=== PATIENT | male | born 1950 | race Caucasian/White ===

== ENCOUNTER → 2016-12-05 | Outpatient (CLI) | payer MEDICARE ==
[~2016-12-05] MED LIST: ACETAMINOPHEN-H1 TA2 PO; ADVIL200 MG PO; B121000 MCG/1 IM; BACTRIM DS 8001 TA1 PO; BENZTROPINE ME0.5 MG PO; CARB/LEVO; CARB/LEVO PO; CARBIDOPA/LEVODOPA; CARBIDOPA/LEVODOPA PO; CIPROFLOXACIN500 MG PO; CITALOPRAM HYDR20 MG PO; CITALOPRAM10 MG PO; CO Q-1010 M2 PO; CO Q-1075 MG PO; COGENTIN0.5 MG PO; COMTAN200 MG PO; COQ10150 MG PO; DARVOCET N 1001 TAB PO; DOXYCYCLINE HY100 M3 PO; FLUMADINE100 MG PO; HUMULIN R100 U/ML SC; HYDROCODONE BIT1 T11 PO; LANTUS100 U/ML SC; LASIX40 MG PO; LEXAPRO10 MG PO; MEDROL DOSEPAK4 MG PO; NOVOLIN R100 U/ML SC; REMERON SOLTAB15 MG PO; SINEMET 25-1001 TA1 PO; SINEMET 25-1001 TA1 SL; SINEMET CR 50 M1 TE1 PO; SINEMET CR 50/21 TAB PO; TOVIAZ8 MG PO; VITAMIN B11000 MCG/M IM; VITAMIN D400 IU PO; [UNRECOGNIZED DRUG - OTHER] PO; [UNRECOGNIZED DRUG - OTHER] PO
== END | disposition home or self-care (01) ==
LOC: ORTHO 04:05
DX: S72.115D Nondisplaced fracture of greater trochanter of left femur, subsequent encounter for closed fracture with routine healing (principal); M25.552 Pain in left hip

== ENCOUNTER → 2017-01-16 | Outpatient (CLI) | payer MEDICARE ==
[~2017-01-16] MED LIST changes: +NORCO 5-325 TA1 EACH PO
== END | disposition home or self-care (01) ==
LOC: ORTHO 03:11
DX: S72.92XD Unspecified fracture of left femur, subsequent encounter for closed fracture with routine healing (principal); G20 Parkinson's disease; X58.XXXD Exposure to other specified factors, subsequent encounter

== ENCOUNTER 2017-01-19 09:29 | Emergency (ER) | payer MEDICARE ==
[~2017-01-19] VITALS: Wt 48.5 kg
[~2017-01-19 09:29] MED LIST changes: -NORCO 5-325 TA1 EACH PO
[2017-01-19 11:02] VITALS: BP 113/68
[2017-01-19] MEDS ORDERED: NORCO 5-325 TA1 EACH PO (12:05)
== END 2017-01-19 12:08 | disposition home or self-care (01) ==
LOC: ED 09:29
DX: G89.29 Other chronic pain (principal); M25.561 Pain in right knee; Z91.030 Bee allergy status; Z91.041 Radiographic dye allergy status; Z79.899 Other long term (current) drug therapy

== ENCOUNTER 2017-08-04 00:43 | Inpatient (IN) | payer MEDICARE ==
[2017-08-04] VITALS (23 sets, daily range): BP systolic 65–123; BP diastolic 39–68
[~2017-08-04] VITALS: Ht 167.6 cm; Wt 52.6 kg
--- NOTE | ~2017-08-04 | EKG ---
[place], [place] ELECTROCARDIOGRAM REPORT NAME: NETO CHRISTIANSON UNIT #: [id number] ROOM: [facility] DOCTOR: KATIE MORENO,KEYUR BIRTHDATE: [birth year] DOS: 08/04/2017 TIME: 0121 hours. Normal sinus rhythm at 97 beats per minute. Low voltage in limb leads. The tracing is otherwise normal. No previous tracing is available for comparison. KEYUR WILSON MD CM:EKGRPT:ELECTROCARDIOGRAM REPORT [id number] KEYUR WILSON MD
[~2017-08-04 00:43] MED LIST changes: +CARBIDOPA; +LEVODOPA; +NORCO 5-325 TA1 EACH PO; +SINEMET; -SINEMET 25-1001 TA1 SL; -SINEMET CR 50 M1 TE1 PO
[2017-08-04 01:46] LABS: HEMATOCRIT 32.6 % (42.0-52.0); MEAN CELL VOLUME 94.8 fl (80.0-94.0); MEAN CORPUSCULAR HGB CONC 33.7 g/dl (33.0-37.0); MEAN PLATELET VOLUME 10.2 fl (9.6-12.3); PLATELET COUNT AUTOMATED 153 10*3/uL (130-400); RED BLOOD COUNT 3.44 10*6/uL (4.50-5.90); RED CELL DISTRI WIDTH 13.1 % (0-14.5); WHITE BLOOD COUNT 15.7 10*3/uL (4.8-10.8)
--- NOTE | 2017-08-04 01:53 | NUR ---
CRITICAL LACTIC ACID REPORTED FROM LAB. DR. HUYNH NOTIFIED.
[2017-08-04 01:57] LABS: INTERNATIONAL NORM RATIO 1.2 (2.0-3.5)
[2017-08-04 02:03] LABS: ALBUMIN 3.3 gm/dl (3.1-4.5); ALKALINE PHOSPHATASE 55 U/L (45-117); BUN 31 mg/dl (7-24); CHLORIDE 106 mmol/L (98-107); CREATININE 2.25 mg/dL (0.70-1.30); LIPASE 86 U/L (73-393); POTASSIUM 4.1 mmol/L (3.5-5.1); SGOT/AST 44 IU/L (3-35); SGPT/ALT 11 U/L (12-78); SODIUM 139 mmol/L (136-145); TOTAL PROTEIN 7.2 gm/dL (6.4-8.2)
[2017-08-04 02:06] LABS: TROPONIN I < 0.015 ng/ml (<0.045)
--- NOTE | 2017-08-04 02:15 | NUR ---
PT PLACED IN [place] POSITION TO ASSIST BP.
[2017-08-04 02:17] LABS: PLATELET SUFFICIENCY NORMAL (NORMAL); TOTAL CELLS COUNTED 100 #CELLS
--- NOTE | 2017-08-04 02:38 | NUR ---
1L NS BAG PLACED IN PRESSURE BAG.
--- NOTE | 2017-08-04 02:57 | NUR ---
PT STATES TINNITUS IS NOT BAD ANYMORE.
--- NOTE | 2017-08-04 03:12 | NUR ---
2L OF FLUID IN PT. CURRENT BP 76/50. DR. HUYNH NOTIFIED.
[2017-08-04 03:52] LABS: BILIRUBIN 2+ (NEGATIVE); BLOOD 3+ (NEGATIVE); CLARITY SL CLOUDY (CLEAR); COLOR YELLOW (YELLOW); GLUCOSE NEGATIVE (NEGATIVE); KETONE 1+ (NEGATIVE); LEUKO ESTERASE TRACE (NEGATIVE); NITRITE POSITIVE (NEGATIVE); SPECIFIC GRAVITY 1.025 (1.005-1.030)
[2017-08-04 04:01] LABS: URINE AMPHETAMINES < 1000 (1000ng/ml); URINE BARBITURATES < 200 (200ng/ml); URINE BENZODIAZEPINES < 200 (200ng/ml); URINE CANNABINOIDS (THC) < 50 (50ng/ml); URINE COCAINE < 300 (300ng/ml); URINE METHADONE < 300 (300ng/ml); URINE OPIATES < 300 (300ng/ml)
[2017-08-04 04:02] LABS: URINE PHENCYCLIDINE < 25 (25ng/ml)
[2017-08-04 04:07] LABS: BACTERIA 3+
[2017-08-04 04:08] LABS: RBC 41-50 rbc/hpf (0-2)
--- NOTE | 2017-08-04 04:20 | NUR ---
RECEIVED REPORT FROM KILN CLEANER. AWAITING PATIENT.
--- NOTE | 2017-08-04 04:40 | NUR ---
A 67, admitted to ICCU, under the services of ROBSON Adams DO with a diagnosis of SEVERE SEPTIC SHOCK, HYPOTENTION. Chief complaint is ABDOMINAL PAIN. Patient arrived via ambulance from ER. Monitor applied. Initial assessment completed. Vital signs taken and recorded. ROBSON ADAMS DO notified of admission to the unit. Orders received. See assessment for past medical history, medications and allergies. Patient and/or family oriented to unit. [facility] ICCU visitation policy reviewed. Clothing/patient valuable form completed. LOU FAM
--- NOTE | 2017-08-04 04:45 | NUR ---
RECEIVED CALL FROM [facility] WANTING A HISTORY ON PATIENT, DUE TO HIM BEING TRANSFERED UP THERE. WAS UNAWARE OF THE TRANSFER, CALLED DR. SORTO ON OTHER LINE. HE STATED YEA TRANSFER PATIENT. PATIENT WAS LYING ON ER CART NOT EVEN IN ROOM YET. CONTACTED ROSIE, SHE STATED WE HAD TO ADMIT PATIENT THEN TRANSFER. GAVE MIMI BRIEF HISTORY, AND HE WILL CALL BACK WITH BED.
--- NOTE | 2017-08-04 04:45 | NUR ---
A 67 YEAR OLD MALE admitted to ICCU, under the services of ROBSON Adams DO with a diagnosis of SEPSIS RELATED HYPOTENSION,COLITIS,PARKINSONS. Chief complaint is ABD PAIN . Patient arrived via stretcher from ER. Monitor applied. Initial assessment completed. Vital signs taken and recorded. ROBSON ADAMS DO notified of admission to the unit. Orders received. See assessment for past medical history, medications and allergies. Patient and/or family oriented to unit. [facility] ICCU visitation policy reviewed. Clothing/patient valuable form completed. MADELYN WIGGINS
--- NOTE | 2017-08-04 04:50 | NUR ---
[facility] CALLED WITH BED, THEN TRANSFERED TO RN TO GIVE REPORT.
--- NOTE | 2017-08-04 05:00 | NUR ---
REPORT GIVEN TO RN AT [facility].
--- NOTE | 2017-08-04 05:50 | NUR ---
PATIENT LEFT FLOOR VIA [facility], FOR TRANSFER TO [facility] ICU.
== END 2017-08-04 05:50 | disposition short-term general hospital (02) | DRG 871 ==
LOC: ED 00:43 → EDHOLD 03:50 → ICCU 04:11
PROVIDERS: Emergency Medicine Emergency Medical Services; ADMIT Internal Medicine
DX: A41.9 Sepsis, unspecified organism (principal); R65.21 Severe sepsis with septic shock; N17.0 Acute kidney failure with tubular necrosis; G93.41 Metabolic encephalopathy; G20 Parkinson's disease; I95.89 Other hypotension; E83.41 Hypermagnesemia; N39.0 Urinary tract infection, site not specified; N18.3 Chronic kidney disease, stage 3 (moderate); K52.9 Noninfective gastroenteritis and colitis, unspecified; G89.29 Other chronic pain; R31.9 Hematuria, unspecified; K56.41 Fecal impaction; D64.9 Anemia, unspecified; R73.9 Hyperglycemia, unspecified; E80.6 Other disorders of bilirubin metabolism; E53.8 Deficiency of other specified B group vitamins; R29.6 Repeated falls; Z87.81 Personal history of (healed) traumatic fracture; Z82.49 Family history of ischemic heart disease and other diseases of the circulatory system; Z83.3 Family history of diabetes mellitus; Z91.030 Bee allergy status; Z91.041 Radiographic dye allergy status; Z79.899 Other long term (current) drug therapy

== ENCOUNTER → 2017-08-19 | Outpatient (CLI) | payer MEDICARE ==
[2017-08-19 15:41] LABS: BASO % 0.6 % (0.0-1.0); EOS # 0.2 10*3/uL (0.0-0.4); EOS % 2.4 % (1.0-4.0); HEMATOCRIT 34.5 % (42.0-52.0); HEMOGLOBIN 11.1 g/dl (14.0-18.0); LYMPH # 1.1 10*3/uL (1.3-4.4); MEAN CELL VOLUME 96.9 fl (80.0-94.0); MEAN CORPUSCULAR HGB 31.2 pg (27.0-31.0); MEAN CORPUSCULAR HGB CONC 32.2 g/dl (33.0-37.0); MEAN PLATELET VOLUME 10.5 fl (9.6-12.3); MONO # 0.7 10*3/uL (0.1-1.0); MONO % 10.9 % (3.0-9.0); NEUT # 4.3 10*3/uL (2.3-7.9); NEUT % 67.8 % (47.0-73.0); PLATELET COUNT AUTOMATED 343 10*3/uL (130-400); RED BLOOD COUNT 3.56 10*6/uL (4.50-5.90); RED CELL DISTRI WIDTH 12.9 % (0-14.5); WHITE BLOOD COUNT 6.3 10*3/uL (4.8-10.8)
[2017-08-19 15:54] LABS: ALBUMIN 3.7 gm/dl (3.1-4.5); CREATININE 1.62 mg/dL (0.70-1.30); POTASSIUM 4.4 mmol/L (3.5-5.1); TOTAL PROTEIN 8.1 gm/dL (6.4-8.2)
== END | disposition home or self-care (01) ==
LOC: LAB 15:16
PROVIDERS: Family Medicine Adult Medicine
DX: K59.03 Drug induced constipation (principal)

== ENCOUNTER 2017-08-26 12:46 | Emergency (ER) | payer MEDICARE ==
[~2017-08-26] VITALS: Ht 167.6 cm; Wt 54.4 kg
[2017-08-26 13:00] VITALS: BP 106/54
[2017-08-26 13:40] LABS: BASO % 0.3 % (0.0-1.0); EOS # 0.1 10*3/uL (0.0-0.4); EOS % 2.1 % (1.0-4.0); HEMATOCRIT 32.7 % (42.0-52.0); HEMOGLOBIN 10.7 g/dl (14.0-18.0); LYMPH # 1.3 10*3/uL (1.3-4.4); LYMPH % 19.6 % (27.0-41.0); MEAN CELL VOLUME 95.9 fl (80.0-94.0); MEAN CORPUSCULAR HGB 31.4 pg (27.0-31.0); MEAN CORPUSCULAR HGB CONC 32.7 g/dl (33.0-37.0); MEAN PLATELET VOLUME 10.2 fl (9.6-12.3); MONO # 0.7 10*3/uL (0.1-1.0); MONO % 9.7 % (3.0-9.0); NEUT # 4.6 10*3/uL (2.3-7.9); NEUT % 67.7 % (47.0-73.0); PLATELET COUNT AUTOMATED 254 10*3/uL (130-400); RED BLOOD COUNT 3.41 10*6/uL (4.50-5.90); RED CELL DISTRI WIDTH 12.8 % (0-14.5); WHITE BLOOD COUNT 6.8 10*3/uL (4.8-10.8)
[2017-08-26 13:49] LABS: ACT PARTIAL THROMBO TIME 26.7 SECONDS (20.8-31.5); INTERNATIONAL NORM RATIO 1.1 (2.0-3.5)
[2017-08-26 13:55] LABS: ALBUMIN 3.7 gm/dl (3.1-4.5); ALKALINE PHOSPHATASE 60 U/L (45-117); BUN 20 mg/dl (7-24); CHLORIDE 106 mmol/L (98-107); CREATININE 1.54 mg/dL (0.70-1.30); LIPASE 136 U/L (73-393); POTASSIUM 4.3 mmol/L (3.5-5.1); SGOT/AST 10 IU/L (3-35); SGPT/ALT 8 U/L (12-78); SODIUM 141 mmol/L (136-145); TOTAL PROTEIN 7.7 gm/dL (6.4-8.2)
== END 2017-08-26 18:29 | disposition home or self-care (01) ==
LOC: ED 12:46
PROVIDERS: Emergency Medicine
DX: K59.00 Constipation, unspecified (principal); G89.29 Other chronic pain; N18.3 Chronic kidney disease, stage 3 (moderate); R73.9 Hyperglycemia, unspecified; E80.6 Other disorders of bilirubin metabolism; E83.41 Hypermagnesemia; I95.9 Hypotension, unspecified; G20 Parkinson's disease; Z91.030 Bee allergy status; Z91.041 Radiographic dye allergy status; Z79.899 Other long term (current) drug therapy

== ENCOUNTER 2017-10-05 07:43 | Inpatient (IN) | payer MEDICARE ==
[~2017-10-05] VITALS: Ht 170.1 cm; Wt 46.7 kg
[2017-10-05] VITALS (9 sets, daily range): BP systolic 95–156; BP diastolic 57–75
[2017-10-05 09:06] LABS: BASO % 0.2 % (0.0-1.0); EOS % 0.2 % (1.0-4.0); HEMATOCRIT 30.6 % (42.0-52.0); HEMOGLOBIN 10.1 g/dl (14.0-18.0); LYMPH # 0.8 10*3/uL (1.3-4.4); LYMPH % 5.9 % (27.0-41.0); MEAN CORPUSCULAR HGB 30.7 pg (27.0-31.0); MONO % 7.5 % (3.0-9.0); NEUT # 10.9 10*3/uL (2.3-7.9); NEUT % 85.9 % (47.0-73.0); PLATELET COUNT AUTOMATED 301 10*3/uL (130-400); RED BLOOD COUNT 3.29 10*6/uL (4.50-5.90); RED CELL DISTRI WIDTH 12.6 % (0-14.5); WHITE BLOOD COUNT 12.7 10*3/uL (4.8-10.8)
[2017-10-05 09:20] LABS: ALBUMIN 3.2 gm/dl (3.1-4.5); CREATININE 1.5 mg/dL (0.70-1.30); POTASSIUM 4.2 mmol/L (3.5-5.1); TOTAL PROTEIN 7.5 gm/dL (6.4-8.2)
[2017-10-05 11:41] LABS: BILIRUBIN NEGATIVE (NEGATIVE); BLOOD NEGATIVE (NEGATIVE); CLARITY SL CLOUDY (CLEAR); COLOR YELLOW (YELLOW); GLUCOSE NEGATIVE (NEGATIVE); KETONE NEGATIVE (NEGATIVE); LEUKO ESTERASE NEGATIVE (NEGATIVE); NITRITE NEGATIVE (NEGATIVE); SPECIFIC GRAVITY 1.015 (1.005-1.030); UROBILINOGEN 0.2 E.U./dl (0.2-1.0)
[2017-10-05 11:53] LABS: HYALINE CAST 0-2; MUCOUS TRACE; RBC 0-2 rbc/hpf (0-2)
[2017-10-05] MEDS ORDERED: MELATONIN1 MG PO (14:26)
[2017-10-05] MEDS ORDERED: SINEMET 25-1001 EACH PO (17:05)
[2017-10-05] MEDS ORDERED: SINEMET CR 50-1 EACH PO (17:06)
[2017-10-06] VITALS: BP 106/70
[2017-10-06 07:51] LABS: BASO % 0.2 % (0.0-1.0); EOS % 0.2 % (1.0-4.0); HEMATOCRIT 27.6 % (42.0-52.0); LYMPH % 7.9 % (27.0-41.0); MEAN CELL VOLUME 94.5 fl (80.0-94.0); MEAN CORPUSCULAR HGB 30.8 pg (27.0-31.0); MEAN CORPUSCULAR HGB CONC 32.6 g/dl (33.0-37.0); MEAN PLATELET VOLUME 10.3 fl (9.6-12.3); MONO % 8.3 % (3.0-9.0); NEUT # 10.3 10*3/uL (2.3-7.9); PLATELET COUNT AUTOMATED 223 10*3/uL (130-400); RED BLOOD COUNT 2.92 10*6/uL (4.50-5.90); RED CELL DISTRI WIDTH 12.8 % (0-14.5); WHITE BLOOD COUNT 12.4 10*3/uL (4.8-10.8)
[2017-10-06 08:00] VITALS: BP 118/68
[2017-10-06 08:23] LABS: ALBUMIN 2.8 gm/dl (3.1-4.5); ALKALINE PHOSPHATASE 60 U/L (45-117); BUN 15 mg/dl (7-24); CHLORIDE 109 mmol/L (98-107); CHOLESTEROL 90 mg/dL (<200); CREATININE 1.24 mg/dL (0.70-1.30); FREE T4 1.07 ng/dl (0.76-1.46); HDL CHOLESTEROL 53 mg/dl (40-60); LDL CHOLESTEROL 26 mg/dL (9-159); PHOSPHOROUS 2.1 mg/dL (2.5-4.9); SGOT/AST 8 IU/L (3-35); SGPT/ALT 7 U/L (12-78); SODIUM 140 mmol/L (136-145); TOTAL PROTEIN 6.8 gm/dL (6.4-8.2); TRIGLYCERIDES 55 mg/dl (<150); VLDL CHOLESTEROL 11 mg/dL (6-40)
[2017-10-06 12:00] VITALS: BP 127/71
[2017-10-06] MEDS ORDERED: SINEMET 25-1001 EACH PO (12:32)
[2017-10-06 16:00] VITALS: BP 127/72
[2017-10-06 20:00] VITALS: BP 92/70
[2017-10-07] VITALS: BP 104/66
[2017-10-07 08:00] VITALS: BP 108/60
[2017-10-07 12:00] VITALS: BP 100/58
[2017-10-07 16:00] VITALS: BP 102/60
[2017-10-07 20:00] VITALS: BP 111/65
[2017-10-08] VITALS: BP 105/65
[2017-10-08 08:00] VITALS: BP 152/78
[2017-10-08] MEDS ORDERED: VITAMIN D5000 UNI1 PO (10:11)
== END 2017-10-08 13:20 | disposition other institution (70) | DRG 552 ==
LOC: ED 07:43 → 5E 12:06 → EDHOLD 12:06 → 5E 12:11
PROVIDERS: Registered Nurse; Student in an Organized Health Care Education/Training Program
DX: M54.5 Low back pain (principal); L89.301 Pressure ulcer of unspecified buttock, stage 1; E44.0 Moderate protein-calorie malnutrition; G20 Parkinson's disease; N18.3 Chronic kidney disease, stage 3 (moderate); Z68.1 Body mass index [BMI] 19.9 or less, adult; E86.0 Dehydration; E83.39 Other disorders of phosphorus metabolism; D53.9 Nutritional anemia, unspecified; K59.00 Constipation, unspecified; R26.2 Difficulty in walking, not elsewhere classified; R62.7 Adult failure to thrive; G89.29 Other chronic pain; M25.569 Pain in unspecified knee; D72.829 Elevated white blood cell count, unspecified; Z91.030 Bee allergy status; Z91.041 Radiographic dye allergy status; Z79.899 Other long term (current) drug therapy; Z82.49 Family history of ischemic heart disease and other diseases of the circulatory system; Z83.3 Family history of diabetes mellitus

== ENCOUNTER 2018-01-19 02:27 | Inpatient (IN) | payer MEDICARE ==
[~2018-01-19] VITALS: Ht 170.1 cm; Wt 77.1 kg
[2018-01-19] VITALS (9 sets, daily range): BP systolic 97–136; BP diastolic 47–83
[~2018-01-19 02:27] MED LIST changes: +MELATONIN1 MG PO; +SINEMET 25-1001 EACH PO; +SINEMET CR 50-1 EACH PO; +VITAMIN D5000 UNI1 PO
[2018-01-19 03:13] LABS: BASO % 0.2 % (0.0-1.0); EOS # 0.2 10*3/uL (0.0-0.4); EOS % 2.9 % (1.0-4.0); HEMATOCRIT 30.9 % (42.0-52.0); HEMOGLOBIN 10.1 g/dl (14.0-18.0); LYMPH # 1.3 10*3/uL (1.3-4.4); LYMPH % 21.5 % (27.0-41.0); MEAN CELL VOLUME 93.9 fl (80.0-94.0); MEAN CORPUSCULAR HGB 30.7 pg (27.0-31.0); MEAN CORPUSCULAR HGB CONC 32.7 g/dl (33.0-37.0); MEAN PLATELET VOLUME 10.1 fl (9.6-12.3); MONO # 0.6 10*3/uL (0.1-1.0); NEUT # 3.7 10*3/uL (2.3-7.9); NEUT % 63.9 % (47.0-73.0); PLATELET COUNT AUTOMATED 235 10*3/uL (130-400); RED BLOOD COUNT 3.29 10*6/uL (4.50-5.90); RED CELL DISTRI WIDTH 12.9 % (0-14.5); WHITE BLOOD COUNT 5.8 10*3/uL (4.8-10.8)
[2018-01-19 03:23] LABS: ACT PARTIAL THROMBO TIME 27.9 SECONDS (20.8-31.5); INTERNATIONAL NORM RATIO 1.1 (2.0-3.5)
[2018-01-19 03:29] LABS: ALBUMIN 3.1 gm/dl (3.1-4.5); ALKALINE PHOSPHATASE 54 U/L (45-117); BUN 24 mg/dl (7-24); CHLORIDE 109 mmol/L (98-107); CREATININE 1.52 mg/dL (0.70-1.30); POTASSIUM 3.9 mmol/L (3.5-5.1); SGOT/AST 6 IU/L (3-35); SODIUM 141 mmol/L (136-145); TOTAL PROTEIN 6.7 gm/dL (6.4-8.2)
[2018-01-19 03:30] LABS: SGPT/ALT < 6 U/L (12-78); TROPONIN I < 0.015 ng/ml (<0.045)
[2018-01-19 03:31] LABS: BILIRUBIN NEGATIVE (NEGATIVE); BLOOD 2+ (NEGATIVE); CLARITY CLEAR (CLEAR); COLOR YELLOW (YELLOW); GLUCOSE NEGATIVE (NEGATIVE); KETONE NEGATIVE (NEGATIVE); LEUKO ESTERASE NEGATIVE (NEGATIVE); NITRITE NEGATIVE (NEGATIVE); PH 6.5 (5.0-9.0); SPECIFIC GRAVITY 1.025 (1.005-1.030); UROBILINOGEN 0.2 E.U./dl (0.2-1.0)
[2018-01-19 03:39] LABS: RBC 21-30 rbc/hpf (0-2)
[2018-01-19] MEDS ORDERED: CARBIDOPA-LEVO1 EAC2 PO (05:58)
[2018-01-19] MEDS ORDERED: DONEPEZIL HYDROC5 M1 PO (05:59)
[2018-01-20] VITALS: BP 133/76
[2018-01-20 06:43] LABS: BASO % 0.5 % (0.0-1.0); EOS # 0.1 10*3/uL (0.0-0.4); EOS % 2.2 % (1.0-4.0); HEMATOCRIT 31.9 % (42.0-52.0); HEMOGLOBIN 10.3 g/dl (14.0-18.0); LYMPH # 1.2 10*3/uL (1.3-4.4); LYMPH % 22.4 % (27.0-41.0); MEAN CELL VOLUME 94.4 fl (80.0-94.0); MEAN CORPUSCULAR HGB 30.5 pg (27.0-31.0); MEAN CORPUSCULAR HGB CONC 32.3 g/dl (33.0-37.0); MEAN PLATELET VOLUME 10.2 fl (9.6-12.3); MONO # 0.5 10*3/uL (0.1-1.0); MONO % 8.9 % (3.0-9.0); NEUT # 3.6 10*3/uL (2.3-7.9); NEUT % 65.5 % (47.0-73.0); PLATELET COUNT AUTOMATED 200 10*3/uL (130-400); RED BLOOD COUNT 3.38 10*6/uL (4.50-5.90); RED CELL DISTRI WIDTH 12.9 % (0-14.5); WHITE BLOOD COUNT 5.5 10*3/uL (4.8-10.8)
[2018-01-20 07:15] LABS: CHLORIDE 108 mmol/L (98-107); CHOLESTEROL 113 mg/dL (<200); CREATININE 1.24 mg/dL (0.70-1.30); PHOSPHOROUS 2.5 mg/dL (2.5-4.9); POTASSIUM 4.2 mmol/L (3.5-5.1); SODIUM 140 mmol/L (136-145); TRIGLYCERIDES 77 mg/dl (<150); VLDL CHOLESTEROL 15 mg/dL (6-40)
[2018-01-20 07:16] LABS: HDL CHOLESTEROL 45 mg/dl (40-60); LDL CHOLESTEROL 53 mg/dL (9-159)
[2018-01-20 07:18] LABS: BUN 13 mg/dl (7-24)
[2018-01-20 07:38] LABS: VITAMIN D, 25-HYDROXY 32.9 ng/mL (30-100)
[2018-01-20 08:00] VITALS: BP 151/79
[2018-01-20 10:26] LABS: IRON 77 ug/dL (65-175); TOTAL IRON BINDING CAPACITY 275 ug/dl (250-450)
[2018-01-20 12:00] VITALS: BP 133/89
[2018-01-20 13:36] LABS: BILIRUBIN NEGATIVE (NEGATIVE); BLOOD NEGATIVE (NEGATIVE); CLARITY SL CLOUDY (CLEAR); COLOR YELLOW (YELLOW); GLUCOSE NEGATIVE (NEGATIVE); KETONE NEGATIVE (NEGATIVE); LEUKO ESTERASE NEGATIVE (NEGATIVE); NITRITE NEGATIVE (NEGATIVE); SPECIFIC GRAVITY <= 1.005 (1.005-1.030); UROBILINOGEN 0.2 E.U./dl (0.2-1.0)
[2018-01-20 13:47] LABS: BACTERIA 1+; MUCOUS 1+; WBC 0-2 wbc/hpf (0-5)
== END 2018-01-20 16:50 | disposition home or self-care (01) | DRG 640 ==
LOC: ED 02:27 → 5E 04:54 → EDHOLD 04:54 → 5E 05:03
PROVIDERS: Emergency Medicine Emergency Medical Services; Internal Medicine; Internal Medicine Nephrology
DX: E86.0 Dehydration (principal); N17.0 Acute kidney failure with tubular necrosis; E44.0 Moderate protein-calorie malnutrition; E87.8 Other disorders of electrolyte and fluid balance, not elsewhere classified; G20 Parkinson's disease; N18.3 Chronic kidney disease, stage 3 (moderate); R26.2 Difficulty in walking, not elsewhere classified; R47.1 Dysarthria and anarthria; E53.8 Deficiency of other specified B group vitamins; D72.810 Lymphocytopenia; D64.9 Anemia, unspecified; G89.29 Other chronic pain; M25.569 Pain in unspecified knee; E55.9 Vitamin D deficiency, unspecified; Z91.81 History of falling; Z83.3 Family history of diabetes mellitus; Z82.49 Family history of ischemic heart disease and other diseases of the circulatory system; Z84.89 Family history of other specified conditions; Z91.030 Bee allergy status; Z91.041 Radiographic dye allergy status; Z79.899 Other long term (current) drug therapy; Z87.440 Personal history of urinary (tract) infections; Z68.26 Body mass index [BMI] 26.0-26.9, adult

== ENCOUNTER → 2018-08-10 | Outpatient (CLI) | payer MEDICARE ==
[~2018-08-10] MED LIST changes: +CARBIDOPA-LEVO1 EAC2 PO; +DONEPEZIL HYDROC5 M1 PO
--- NOTE | ~2018-08-10 | EKG ---
[place], [place] ELECTROCARDIOGRAM REPORT NAME: NETO CHRISTIANSON UNIT #: [id number] ROOM: DOCTOR: RONA DRAFT REPORT BIRTHDATE: [birth year] [facility] Test Date: 2018-08-10 Test Time: 15:35:11 Pat Name: NETO CHRISTIANSON Department: Room: [facility] 08-19 Gender: M Orderly: 0012 : 1950 Requested By: FELY CANALES Order Number: [id number] Reading MD: Tommy Colbert MD Measurements Intervals [place] Rate: 79 P: 76 UT: 164 QRS: 59 QRSD: 85 T: 13 QT: 366 QTc: 420 Interpretive Statements Sinus rhythm Low voltage, extremity leads Artifact in lead(s) I,II,III,aVR,aVL,aVF,V1,V2,V3,V6 Electronically Signed On 08-12-2018 6:31:19 PST by Tommy Colbert MD CM:EKGRPT:ELECTROCARDIOGRAM REPORT [id number] FELY REA DRAFT REPORT FELY CANALES
[2018-08-10 15:19] LABS: BASO % 0.4 % (0.0-1.0); EOS # 0.1 10*3/uL (0.0-0.4); EOS % 1.3 % (1.0-4.0); HEMATOCRIT 36.5 % (42.0-52.0); HEMOGLOBIN 12.3 g/dl (14.0-18.0); LYMPH # 1.1 10*3/uL (1.3-4.4); LYMPH % 20.6 % (27.0-41.0); MEAN CELL VOLUME 93.4 fl (80.0-94.0); MEAN CORPUSCULAR HGB 31.5 pg (27.0-31.0); MEAN CORPUSCULAR HGB CONC 33.7 g/dl (33.0-37.0); MEAN PLATELET VOLUME 10.8 fl (9.6-12.3); MONO # 0.5 10*3/uL (0.1-1.0); MONO % 8.3 % (3.0-9.0); NEUT # 3.8 10*3/uL (2.3-7.9); NEUT % 69.2 % (47.0-73.0); PLATELET COUNT AUTOMATED 217 10*3/uL (130-400); RED BLOOD COUNT 3.91 10*6/uL (4.50-5.90); RED CELL DISTRI WIDTH 12.7 % (0-14.5); WHITE BLOOD COUNT 5.5 10*3/uL (4.8-10.8)
[2018-08-10 15:49] LABS: ACT PARTIAL THROMBO TIME 26.7 SECONDS (20.8-31.5); INTERNATIONAL NORM RATIO 1.1 (2.0-3.5); POTASSIUM 4.1 mmol/L (3.5-5.1)
[2018-08-10 15:54] LABS: CREATININE 1.63 mg/dL (0.70-1.30)
== END | disposition home or self-care (01) ==
LOC: LAB 14:48
PROVIDERS: Neurological Surgery
DX: Z01.818 Encounter for other preprocedural examination (principal); G20 Parkinson's disease; Z86.2 Personal history of diseases of the blood and blood-forming organs and certain disorders involving the immune mechanism

== ENCOUNTER 2019-03-22 06:26 | Emergency (ER) | payer MEDICARE ==
[~2019-03-22] VITALS: Ht 170.1 cm; Wt 49.9 kg
[2019-03-22 07:25] LABS: BASO % 0.2 % (0.0-1.0); EOS % 0.3 % (1.0-4.0); HEMATOCRIT 36.2 % (42.0-52.0); HEMOGLOBIN 11.7 g/dl (14.0-18.0); LYMPH # 0.5 10*3/uL (1.3-4.4); LYMPH % 8.9 % (27.0-41.0); MEAN CELL VOLUME 97.3 fl (80.0-94.0); MEAN CORPUSCULAR HGB 31.5 pg (27.0-31.0); MEAN CORPUSCULAR HGB CONC 32.3 g/dl (33.0-37.0); MEAN PLATELET VOLUME 10.7 fl (9.6-12.3); MONO # 0.5 10*3/uL (0.1-1.0); MONO % 8.9 % (3.0-9.0); NEUT % 81.4 % (47.0-73.0); PLATELET COUNT AUTOMATED 200 10*3/uL (130-400); RED BLOOD COUNT 3.72 10*6/uL (4.50-5.90); RED CELL DISTRI WIDTH 12.9 % (0-14.5); WHITE BLOOD COUNT 6.1 10*3/uL (4.8-10.8)
[2019-03-22 07:39] LABS: ALBUMIN 3.4 gm/dl (3.1-4.5); ALKALINE PHOSPHATASE 91 U/L (45-117); BUN 25 mg/dl (7-24); CHLORIDE 108 mmol/L (98-107); CREATININE 1.36 mg/dL (0.70-1.30); LIPASE 102 U/L (73-393); POTASSIUM 4.2 mmol/L (3.5-5.1); SGOT/AST 6 IU/L (3-35); SGPT/ALT 10 U/L (12-78); SODIUM 140 mmol/L (136-145); TOTAL PROTEIN 7.5 gm/dL (6.4-8.2)
[2019-03-22 07:40] LABS: TROPONIN I < 0.015 ng/ml (<0.045)
[2019-03-22 08:05] VITALS: BP 114/64
[2019-03-22 08:51] LABS: BILIRUBIN NEGATIVE (NEGATIVE); BLOOD NEGATIVE (NEGATIVE); CLARITY SL CLOUDY (CLEAR); COLOR YELLOW (YELLOW); GLUCOSE NEGATIVE (NEGATIVE); KETONE NEGATIVE (NEGATIVE); LEUKO ESTERASE 1+ (NEGATIVE); NITRITE NEGATIVE (NEGATIVE)
[2019-03-22 09:07] LABS: BACTERIA 2+; EPITHELIAL CELLS 0-2; WBC TNTC wbc/hpf (0-5)
[2019-03-22] MEDS ORDERED: MACROBID100 M1 PO (09:33)
[2019-03-22] MEDS ORDERED: MIRALAX POWDER17 G1 PO (09:34)
== END 2019-03-22 10:16 | disposition home or self-care (01) ==
LOC: ED 06:26
PROVIDERS: Emergency Medicine Emergency Medical Services
DX: N39.0 Urinary tract infection, site not specified (principal); K59.00 Constipation, unspecified; G20 Parkinson's disease; G89.29 Other chronic pain; N18.3 Chronic kidney disease, stage 3 (moderate); Z98.890 Other specified postprocedural states; Z91.030 Bee allergy status; Z91.041 Radiographic dye allergy status

== ENCOUNTER 2020-05-12 15:54 | Emergency (ER) | payer MEDICARE ==
[~2020-05-12] VITALS: Wt 50.8 kg
[2020-05-12 15:54] VITALS: BP 95/57
[~2020-05-12 15:54] MED LIST changes: +MACROBID100 M1 PO; +MIRALAX POWDER17 G1 PO
== END 2020-05-12 18:20 | disposition home or self-care (01) ==
LOC: ED 15:54
DX: S01.112A Laceration without foreign body of left eyelid and periocular area, initial encounter (principal); S61.411A Laceration without foreign body of right hand, initial encounter; Z91.030 Bee allergy status; Z79.899 Other long term (current) drug therapy; X58.XXXA Exposure to other specified factors, initial encounter; Y93.89 Activity, other specified; Y92.89 Other specified places as the place of occurrence of the external cause; Y99.8 Other external cause status

== ENCOUNTER 2020-06-11 17:09 | Observation (INO) | payer MEDICARE ==
[~2020-06-11] VITALS: Ht 167.6 cm; Wt 48.4 kg
[2020-06-11 17:37] VITALS: BP 130/74
[2020-06-11 18:02] LABS: BASO % 0.3 % (0.0-1.0); EOS # 0.1 10*3/uL (0.0-0.4); HEMATOCRIT 34.1 % (42.0-52.0); LYMPH # 0.8 10*3/uL (1.3-4.4); LYMPH % 9.6 % (27.0-41.0); MEAN CELL VOLUME 98.8 fl (80.0-94.0); MEAN CORPUSCULAR HGB CONC 31.4 g/dl (33.0-37.0); MEAN PLATELET VOLUME 9.8 fl (9.6-12.3); MONO # 0.6 10*3/uL (0.1-1.0); MONO % 7.8 % (3.0-9.0); NEUT # 6.4 10*3/uL (2.3-7.9); NEUT % 80.9 % (47.0-73.0); PLATELET COUNT AUTOMATED 255 10*3/uL (130-400); RED BLOOD COUNT 3.45 10*6/uL (4.50-5.90); RED CELL DISTRI WIDTH 14.5 % (0-14.5); WHITE BLOOD COUNT 7.9 10*3/uL (4.8-10.8)
[2020-06-11 18:15] LABS: ACT PARTIAL THROMBO TIME 26.8 SECONDS (20.0-32.1)
[2020-06-11 18:19] LABS: ALBUMIN 3.3 gm/dl (3.1-4.5); ALKALINE PHOSPHATASE 109 U/L (45-117); BUN 22 mg/dl (7-24); CHLORIDE 109 mmol/L (98-107); CREATININE 1.58 mg/dL (0.70-1.30); POTASSIUM 4.4 mmol/L (3.5-5.1); SGOT/AST 6 IU/L (3-35); SGPT/ALT 7 U/L (12-78); SODIUM 138 mmol/L (136-145); TOTAL PROTEIN 7.4 gm/dL (6.4-8.2)
[2020-06-11 18:21] LABS: LIPASE 81 U/L (73-393); TROPONIN I < 0.015 ng/ml (<0.045)
--- NOTE | 2020-06-11 18:30 | NUR ---
PATIENT IS RESTING AT THIS TIME. CALL LIGHT IN REACH.
[2020-06-11 18:53] VITALS: BP 124/80
[2020-06-11 21:10] VITALS: BP 145/85
--- NOTE | 2020-06-11 21:10 | NUR ---
A 69 YEAR OLD MALE PATIENT , admitted to 4E, under the services of RAFAELA Castro DO with a diagnosis of CHEST PAIN R/O [place]. Chief complaint is CHEST PAIN UNDER LEFT AXILLARY AREA, STARTED TODAY, PER PATIETNS HE HAS BEEN HITTING THIS AREA OFF ARM OF WHEELCHAIR. Patient arrived via CART WITH RN from ER. Monitor applied. Initial assessment completed. Vital signs taken and recorded. See assessment for past medical history, medications and allergies. Patient and/or family oriented to unit. [facility] 416-2 visitation policy reviewed. Clothing/patient valuable form completed. LAKEISHA DAS
[2020-06-11] MEDS ORDERED: MELATONIN1 MG PO (22:08)
[2020-06-11] MEDS ORDERED: SERTRALINE HYDR50 MG PO (22:09)
--- NOTE | 2020-06-11 22:10 | NUR ---
MEDICATION RECONCILLIATION COMPLETED WITH PATIENTS OVER THE PHONE, STATES THEY DO NOT SEE A PSYCHIATRIC LPN AND HAVE NO PREFERENCE TO WHO THEY WOULD SEE
[2020-06-11] MEDS ORDERED: COLACE100 MG PO (22:12)
[2020-06-11] MEDS ORDERED: [UNRECOGNIZED DRUG - OTHER] T (22:13)
--- NOTE | 2020-06-11 22:34 | NUR ---
DR ESCOBAR AWARE THAT MED REC IS UP TO DATE
--- NOTE | 2020-06-11 22:41 | NUR ---
PILL BOX THAT PATIENT HAD FROM HOME SENT TO PHARMACY AT THIS TIME
--- NOTE | 2020-06-11 23:18 | NUR ---
PER PATIENTS , PATIENT HAS NOT HAD A BOWEL MOVEMENT IN 11 DAYS. PER REPORT FROM ER PATIENT ARRIVED TO THEM WITH BM IN HIS BRIEF AND WHEN PATIENT ARRIVED TO THE 4TH FLOOR PATIENT HAD SMEARS OF BM ON BRIEF. WILL PASS ALONG TO
[2020-06-12] VITALS: BP 146/90
--- NOTE | 2020-06-12 | NUR ---
ADMISSION WOUND PHOTOS TAKEN AT THIS TIME. PATIENT TOLERATED WELL, OPTIFOAM SACRUM WAS APPLIED TO COCCYX PROTECTIVE MEASURE RN AWAITS DR ORDER FOR WOUND CARE. OPTIFOAM AND VERSATIL APPLIED TO WOUND ON SPONE PROTECTIVE MEASURE WELL. PATIENT DENIES PAIN TO THESE SITES.
[2020-06-12 06:32] LABS: BASO % 0.5 % (0.0-1.0); EOS # 0.1 10*3/uL (0.0-0.4); HEMATOCRIT 33.9 % (42.0-52.0); LYMPH # 1.2 10*3/uL (1.3-4.4); LYMPH % 19.1 % (27.0-41.0); MEAN CORPUSCULAR HGB 30.9 pg (27.0-31.0); MEAN CORPUSCULAR HGB CONC 31.6 g/dl (33.0-37.0); MEAN PLATELET VOLUME 9.9 fl (9.6-12.3); MONO # 0.6 10*3/uL (0.1-1.0); MONO % 9.4 % (3.0-9.0); NEUT # 4.4 10*3/uL (2.3-7.9); NEUT % 68.5 % (47.0-73.0); PLATELET COUNT AUTOMATED 261 10*3/uL (130-400); RED BLOOD COUNT 3.46 10*6/uL (4.50-5.90); RED CELL DISTRI WIDTH 14.5 % (0-14.5); WHITE BLOOD COUNT 6.4 10*3/uL (4.8-10.8)
[2020-06-12 07:05] LABS: ALBUMIN 3.3 gm/dl (3.1-4.5); ALKALINE PHOSPHATASE 105 U/L (45-117); BUN 19 mg/dl (7-24); CHLORIDE 109 mmol/L (98-107); CHOLESTEROL 152 mg/dL (<200); CREATININE 1.41 mg/dL (0.70-1.30); POTASSIUM 4.3 mmol/L (3.5-5.1); SGOT/AST 9 IU/L (3-35); SGPT/ALT 8 U/L (12-78); SODIUM 139 mmol/L (136-145); TOTAL PROTEIN 7.4 gm/dL (6.4-8.2); TRIGLYCERIDES 120 mg/dl (<150); VLDL CHOLESTEROL 24 mg/dL (6-40)
[2020-06-12 07:10] LABS: HDL CHOLESTEROL 61 mg/dl (40-60); LDL CHOLESTEROL 67 mg/dL (9-159)
[2020-06-12 08:26] LABS: VITAMIN D, 25-HYDROXY 16.6 ng/mL (30-100)
--- NOTE | 2020-06-12 09:00 | NUR ---
case management visits with patient, patient unable to carry on a conversation, will contact patient's regarding discharge plans
--- NOTE | 2020-06-12 11:48 | NUR ---
case management attempted to contact patient's regarding discharge plans, unable to leave a voicemail due to mailbox being full. case management will attempt at a later time
[2020-06-12 12:00] VITALS: BP 115/80
[2020-06-12 16:00] VITALS: BP 122/70
[2020-06-12 20:00] VITALS: BP 105/67
[2020-06-13] VITALS: BP 117/61
[2020-06-13 08:00] VITALS: BP 133/83
--- NOTE | 2020-06-13 08:34 | NUR ---
Called patients to discuss discharge planning. She stated [facility] services through [facility]. He has [facility] 4 days a week 2 hours per day and always [facility] 1 day a week for 4 hours. [facility] has a nurse call into the home once a month to check on any additional needs.
--- NOTE | 2020-06-13 11:03 | NUR ---
Spoke with again, stated patient is scheduled for a stress test today and if that is ok he will be discharged to home. she stated she can't transport him home, she uses [employer]. I told her I would call when patient is discharged and set up so she knows what time to expect him.
[2020-06-13 12:00] VITALS: BP 103/62
--- NOTE | 2020-06-13 12:30 | NUR ---
Patient not available for Occupational Therapy evaluation as he was out of his room for a stress test and expected to be gone for 2 hrs per nursing. PLOF patient is w/c dependent and ADL dependent with non-skilled aides 5 days/wk in the home. OT will recheck at a later date. Aziza Hunter OTR/l
--- NOTE | 2020-06-13 12:40 | NUR ---
PATIENT TO [facility] FOR STRESS TEST.
--- NOTE | 2020-06-13 13:20 | NUR ---
INFORMED CONSENT SIGNED FOR LEXISCAN STRESS TEST WITH DR. LOVE. RESTING EKG RBBB, HR 89, BP 128/78. PULSE OX 98% AND LUNGS CLEAR BILATERALLY. COMPLETED ONE MINUTE OF LEXISCAN PROTOCOL RECEIVING LEXISCAN 0.4MG OVER 10 SECONDS. NO ARRHYTHMIAS NOTED. NONDIAGNOSTIC ST CHANGES PRESENT. ARTIFACT NOTED D/T PT HAVING DEEP BRAIN STIMULATOR AND UNABLE TO TURN OFF. PT HAD NO C/O. LAST RECOVERY HR 117, BP 104/70. WAITING NUCLEAR SCANNING IN STABLE CONDITION.
--- NOTE | 2020-06-13 13:50 | NUR ---
PHYSICAL THERAPY Attempted to see pt for evaluation, unvailable out of room for stress test will follow at a later date. Leticia Henriquez PT
--- NOTE | 2020-06-13 14:31 | NUR ---
PATIENT RETURNED FROM STRESS TEST; RESUMING MEDS AND DIET, SEE SHIFT ASSESSMENT FOR DETAILS.
--- NOTE | 2020-06-13 15:30 | NUR ---
PRN PO TYLENOL EFFECTIVE, PER PATIENT.
[2020-06-13 16:00] VITALS: BP 106/85
--- NOTE | 2020-06-13 18:37 | NUR ---
PATIENT REFUSING DISCHARGE WOUND PHOTOS DUE TO PAIN WITH MOVEMENT.
--- NOTE | 2020-06-13 19:00 | NUR ---
PREPARING PATIENT FOR DISCHARGE HOME BY [facility]. IS AWARE THAT AMBULANCE IS EN ROUTE TO THE HOSPITAL, AND PATIENT WILL ARRIVE HOME SOON.
--- NOTE | 2020-06-13 19:06 | NUR ---
PATIENT DISCHARGED HOME BY [facility] AT THIS TIME, DISCHARGE INSTRUCTIONS IN CARE OF EMT'S.
== END 2020-06-13 19:07 | disposition home or self-care (01) ==
LOC: ED 17:09 → EDHOLD 19:06 → 4E 19:06
PROVIDERS: Emergency Medicine; Internal Medicine; ADMIT Internal Medicine; ATTEND Internal Medicine
DX: R07.89 Other chest pain (principal); G20 Parkinson's disease; R79.89 Other specified abnormal findings of blood chemistry; D53.9 Nutritional anemia, unspecified; E87.8 Other disorders of electrolyte and fluid balance, not elsewhere classified; E83.41 Hypermagnesemia; D72.9 Disorder of white blood cells, unspecified; D72.810 Lymphocytopenia; N18.3 Chronic kidney disease, stage 3 (moderate); F32.9 Major depressive disorder, single episode, unspecified; E55.9 Vitamin D deficiency, unspecified

== ENCOUNTER 2020-10-21 05:56 | Emergency (ER) | payer MEDICARE ==
[~2020-10-21] VITALS: Ht 170.1 cm; Wt 52.2 kg
[~2020-10-21 05:56] MED LIST changes: +COLACE100 MG PO; +SERTRALINE HYDR50 MG PO; +[UNRECOGNIZED DRUG - OTHER] T
[2020-10-21 07:51] VITALS: BP 102/56
== END 2020-10-21 09:49 | disposition home or self-care (01) ==
LOC: ED 05:56
DX: S00.212A Abrasion of left eyelid and periocular area, initial encounter (principal); G20 Parkinson's disease; N18.30 Chronic kidney disease, stage 3 unspecified; F32.9 Major depressive disorder, single episode, unspecified; Z91.030 Bee allergy status; Z91.041 Radiographic dye allergy status; Z79.899 Other long term (current) drug therapy; Z98.890 Other specified postprocedural states; W06.XXXA Fall from bed, initial encounter; Y93.89 Activity, other specified; Y92.098 Other place in other non-institutional residence as the place of occurrence of the external cause; Y99.8 Other external cause status

== ENCOUNTER 2020-11-27 16:59 | Emergency (ER) | payer MEDICARE ==
[~2020-11-27] VITALS: Wt 47.6 kg
[2020-11-27 18:10] VITALS: BP 90/59
== END 2020-11-27 21:15 | disposition home or self-care (01) ==
LOC: ED 16:59
DX: S89.92XA Unspecified injury of left lower leg, initial encounter (principal); M25.562 Pain in left knee; Z91.030 Bee allergy status; Z91.041 Radiographic dye allergy status; Z79.899 Other long term (current) drug therapy; Z98.890 Other specified postprocedural states; W22.8XXA Striking against or struck by other objects, initial encounter; Y93.89 Activity, other specified; Y92.89 Other specified places as the place of occurrence of the external cause; Y99.8 Other external cause status

== ENCOUNTER 2021-01-07 21:06 | Emergency (ER) | payer MEDICARE ==
[~2021-01-07] VITALS: Wt 63.5 kg
[2021-01-07 22:24] VITALS: BP 142/70
== END 2021-01-07 23:32 | disposition home or self-care (01) ==
LOC: ED 21:06
DX: S20.212A Contusion of left front wall of thorax, initial encounter (principal); Z91.030 Bee allergy status; Z79.899 Other long term (current) drug therapy; Z91.041 Radiographic dye allergy status; Z98.890 Other specified postprocedural states; W19.XXXA Unspecified fall, initial encounter; Y93.89 Activity, other specified; Y92.89 Other specified places as the place of occurrence of the external cause; Y99.8 Other external cause status

== ENCOUNTER 2021-01-22 20:48 | Emergency (ER) | payer MEDICARE ==
[~2021-01-22] VITALS: Ht 177.8 cm; Wt 51.3 kg
[2021-01-22 20:53] VITALS: BP 136/72
== END 2021-01-22 23:43 | disposition home or self-care (01) ==
LOC: ED 20:48
DX: S01.81XA Laceration without foreign body of other part of head, initial encounter (principal); M25.512 Pain in left shoulder; Z91.030 Bee allergy status; Z91.041 Radiographic dye allergy status; Z79.899 Other long term (current) drug therapy; Z98.890 Other specified postprocedural states; W05.0XXA Fall from non-moving wheelchair, initial encounter; Y93.89 Activity, other specified; Y92.89 Other specified places as the place of occurrence of the external cause; Y99.8 Other external cause status

== ENCOUNTER 2021-02-18 19:01 | Emergency (ER) | payer MEDICARE ==
[~2021-02-18] VITALS: Ht 167.6 cm; Wt 59.9 kg
[2021-02-18 19:06] VITALS: BP 101/49
[2021-02-18 19:36] LABS: BASO % 0.1 % (0.0-1.0); EOS % 0.3 % (1.0-4.0); HEMATOCRIT 33.2 % (42.0-52.0); LYMPH # 0.6 10*3/uL (1.3-4.4); LYMPH % 6.5 % (27.0-41.0); MEAN CELL VOLUME 101.2 fl (80.0-94.0); MEAN CORPUSCULAR HGB 32.3 pg (27.0-31.0); MEAN CORPUSCULAR HGB CONC 31.9 g/dl (33.0-37.0); MEAN PLATELET VOLUME 9.6 fl (9.6-12.3); MONO # 0.8 10*3/uL (0.1-1.0); MONO % 8.3 % (3.0-9.0); NEUT % 84.4 % (47.0-73.0); PLATELET COUNT AUTOMATED 198 10*3/uL (130-400); RED BLOOD COUNT 3.28 10*6/uL (4.50-5.90); RED CELL DISTRI WIDTH 13.1 % (0-14.5); WHITE BLOOD COUNT 9.5 10*3/uL (4.8-10.8)
[2021-02-18 19:52] LABS: ALBUMIN 3.5 gm/dl (3.1-4.5); CREATININE 1.85 mg/dL (0.70-1.30); POTASSIUM 4.7 mmol/L (3.5-5.1); TOTAL PROTEIN 7.3 gm/dL (6.4-8.2)
== END 2021-02-18 23:26 | disposition home or self-care (01) ==
LOC: ED 19:01
PROVIDERS: Internal Medicine
DX: N17.9 Acute kidney failure, unspecified (principal); D53.9 Nutritional anemia, unspecified; N18.9 Chronic kidney disease, unspecified; Z91.030 Bee allergy status; Z91.041 Radiographic dye allergy status; Z79.899 Other long term (current) drug therapy; Z98.890 Other specified postprocedural states

== ENCOUNTER 2021-04-12 13:54 | Emergency (ER) | payer MEDICARE ==
[2021-04-12 14:10] VITALS: BP 123/72
[2021-04-12 14:54] LABS: BASO % 0.3 % (0.0-1.0); EOS # 0.1 10*3/uL (0.0-0.4); EOS % 0.5 % (1.0-4.0); HEMATOCRIT 35.7 % (42.0-52.0); LYMPH # 0.8 10*3/uL (1.3-4.4); LYMPH % 7.1 % (27.0-41.0); MEAN CELL VOLUME 98.1 fl (80.0-94.0); MEAN CORPUSCULAR HGB 31.9 pg (27.0-31.0); MEAN CORPUSCULAR HGB CONC 32.5 g/dl (33.0-37.0); MONO # 0.9 10*3/uL (0.1-1.0); MONO % 8.2 % (3.0-9.0); NEUT # 8.8 10*3/uL (2.3-7.9); NEUT % 83.3 % (47.0-73.0); PLATELET COUNT AUTOMATED 224 10*3/uL (130-400); RED BLOOD COUNT 3.64 10*6/uL (4.50-5.90); RED CELL DISTRI WIDTH 12.6 % (0-14.5); WHITE BLOOD COUNT 10.6 10*3/uL (4.8-10.8)
[2021-04-12 15:04] LABS: CREATININE 1.75 mg/dL (0.70-1.30); POTASSIUM 4.1 mmol/L (3.5-5.1)
== END 2021-04-12 20:34 | disposition home or self-care (01) ==
LOC: ED 13:54
PROVIDERS: Emergency Medicine
DX: S06.309A Unspecified focal traumatic brain injury with loss of consciousness of unspecified duration, initial encounter (principal); S72.002A Fracture of unspecified part of neck of left femur, initial encounter for closed fracture; N18.30 Chronic kidney disease, stage 3 unspecified; F32.9 Major depressive disorder, single episode, unspecified; G20 Parkinson's disease; Z91.030 Bee allergy status; Z91.041 Radiographic dye allergy status; Z79.899 Other long term (current) drug therapy; Z98.890 Other specified postprocedural states; W05.0XXA Fall from non-moving wheelchair, initial encounter; Y93.89 Activity, other specified; Y92.89 Other specified places as the place of occurrence of the external cause; Y99.8 Other external cause status

== ENCOUNTER → 2021-11-08 | Outpatient (CLI) | payer MEDICARE | END | disposition home or self-care (01) | LOC: RAD/SH 10:28 | PROVIDERS: ATTEND Family Medicine | DX: R13.10 Dysphagia, unspecified (principal) ==

== ENCOUNTER 2021-12-08 14:42 | Emergency (ER) | payer MEDICARE ==
[~2021-12-08] VITALS: Ht 167.6 cm; Wt 49.9 kg
[2021-12-08 15:05] VITALS: BP 103/74
== END 2021-12-08 17:49 | disposition home or self-care (01) ==
LOC: ED 14:42
DX: M25.571 Pain in right ankle and joints of right foot (principal); Z91.030 Bee allergy status; Z91.041 Radiographic dye allergy status; Z79.899 Other long term (current) drug therapy; Z98.890 Other specified postprocedural states

== ENCOUNTER 2021-12-15 20:44 | Emergency (ER) | payer MEDICARE | END 2021-12-15 23:35 | disposition home or self-care (01) | LOC: ED 20:44 | DX: M79.602 Pain in left arm (principal); Z91.030 Bee allergy status; Z91.041 Radiographic dye allergy status; Z79.899 Other long term (current) drug therapy; Z98.890 Other specified postprocedural states ==

== ENCOUNTER 2022-02-02 03:22 | Emergency (ER) | payer MEDICARE ==
[2022-02-02 03:27] VITALS: BP 121/70
[2022-02-02 03:41] LABS: BASO % 0.3 % (0.0-1.0); EOS # 0.2 10*3/uL (0.0-0.4); EOS % 2.7 % (1.0-4.0); HEMATOCRIT 35.2 % (42.0-52.0); LYMPH # 1.5 10*3/uL (1.3-4.4); LYMPH % 23.3 % (27.0-41.0); MEAN CELL VOLUME 97.2 fl (80.0-94.0); MEAN CORPUSCULAR HGB 31.8 pg (27.0-31.0); MEAN CORPUSCULAR HGB CONC 32.7 g/dl (33.0-37.0); MEAN PLATELET VOLUME 10.1 fl (9.6-12.3); MONO # 0.8 10*3/uL (0.1-1.0); MONO % 12.2 % (3.0-9.0); NEUT # 3.9 10*3/uL (2.3-7.9); NEUT % 61.3 % (47.0-73.0); PLATELET COUNT AUTOMATED 210 10*3/uL (130-400); RED BLOOD COUNT 3.62 10*6/uL (4.50-5.90); RED CELL DISTRI WIDTH 13.6 % (0-14.5); WHITE BLOOD COUNT 6.3 10*3/uL (4.8-10.8)
[2022-02-02 03:55] LABS: CREATININE 1.69 mg/dL (0.70-1.30); POTASSIUM 4.6 mmol/L (3.5-5.1); TOTAL PROTEIN 7.7 gm/dL (6.4-8.2)
== END 2022-02-02 06:11 | disposition home or self-care (01) ==
LOC: ED 03:22
PROVIDERS: Internal Medicine
DX: M79.605 Pain in left leg (principal); D64.9 Anemia, unspecified; N18.31 Chronic kidney disease, stage 3a; Z91.030 Bee allergy status; Z91.041 Radiographic dye allergy status; Z79.899 Other long term (current) drug therapy; Z98.890 Other specified postprocedural states

== ENCOUNTER → 2022-03-07 | Outpatient (CLI) | payer MEDICARE ==
[~2022-03-07] MED LIST changes: -SINEMET CR 50-1 EACH PO; +SINEMET PO
== END | disposition home or self-care (01) ==
LOC: CARD 01:36
PROVIDERS: ATTEND Family Medicine
DX: R07.2 Precordial pain (principal)

== ENCOUNTER 2022-12-20 20:40 | Emergency (ER) | payer MEDICARE, OTHER ==
[~2022-12-20] VITALS: Ht 170.1 cm; Wt 60.6 kg
[2022-12-20 20:43] VITALS: BP 168/94
== END 2022-12-21 00:02 | disposition home or self-care (01) ==
LOC: ED 20:40
DX: S22.32XA Fracture of one rib, left side, initial encounter for closed fracture (principal); I10 Essential (primary) hypertension; Z91.030 Bee allergy status; Z91.041 Radiographic dye allergy status; Z98.890 Other specified postprocedural states; F10.20 Alcohol dependence, uncomplicated; X50.1XXA Overexertion from prolonged static or awkward postures, initial encounter; Y93.89 Activity, other specified; Y92.89 Other specified places as the place of occurrence of the external cause; Y99.8 Other external cause status

== ENCOUNTER 2023-05-29 11:57 | Emergency (ER) | payer OTHER, MEDICARE ==
[~2023-05-29] VITALS: Ht 165.1 cm; Wt 63.0 kg
[2023-05-29] MEDS ORDERED: REMERON15 M2 PO (12:28)
[2023-05-29] MEDS ORDERED: EPIPEN JR0.15 MG/01 IJ (12:29)
[2023-05-29] MEDS ORDERED: VITAMIN D310 MCG PO (12:31)
[2023-05-29] MEDS ORDERED: CALCIUM CARBON600 M4 PO (12:35)
[2023-05-29] MEDS ORDERED: TYLENOL EXTRA500 M2 PO (12:36)
[2023-05-29] MEDS ORDERED: MIRALAX119 GM PO (12:37)
[2023-05-29 13:02] LABS: BASO % 0.4 % (0.0-1.0); EOS # 0.2 10*3/uL (0.0-0.4); HEMATOCRIT 34.3 % (42.0-52.0); LYMPH # 0.7 10*3/uL (1.3-4.4); LYMPH % 12.5 % (27.0-41.0); MEAN CORPUSCULAR HGB 31.5 pg (27.0-31.0); MEAN CORPUSCULAR HGB CONC 32.9 g/dl (33.0-37.0); MEAN PLATELET VOLUME 10.2 fl (9.6-12.3); MONO # 0.7 10*3/uL (0.1-1.0); MONO % 12.5 % (3.0-9.0); NEUT # 3.8 10*3/uL (2.3-7.9); NEUT % 71.2 % (47.0-73.0); PLATELET COUNT AUTOMATED 229 10*3/uL (130-400); RED BLOOD COUNT 3.59 10*6/uL (4.50-5.90); RED CELL DISTRI WIDTH 13.1 % (0-14.5); WHITE BLOOD COUNT 5.3 10*3/uL (4.8-10.8)
[2023-05-29 13:07] LABS: MEAN CELL VOLUME 95.5 fl (80.0-94.0)
[2023-05-29 13:24] LABS: ALKALINE PHOSPHATASE 67 U/L (46-116); BUN 27 mg/dl (9-23); CHLORIDE 109 mmol/L (98-107); POTASSIUM 4.2 mmol/L (3.4-5.1); TOTAL PROTEIN 7.1 gm/dL (6.0-8.0)
[2023-05-29 13:25] LABS: SGPT/ALT < 7 U/L (10-49)
[2023-05-29] MEDS ORDERED: OMNICEF300 MG PO (15:33)
[2023-05-29] MEDS ORDERED: ZITHROMAX250 MG PO (15:33)
[2023-05-29 16:23] VITALS: BP 131/78
== END 2023-05-29 16:32 ==
LOC: ED 11:57
PROVIDERS: Internal Medicine
DX: J18.9 Pneumonia, unspecified organism (principal); G20 Parkinson's disease; F02.80 Dementia in other diseases classified elsewhere, unspecified severity, without behavioral disturbance, psychotic disturbance, mood disturbance, and anxiety; I10 Essential (primary) hypertension; Z91.030 Bee allergy status; Z91.041 Radiographic dye allergy status; Z98.890 Other specified postprocedural states; F17.200 Nicotine dependence, unspecified, uncomplicated

== ENCOUNTER 2024-01-07 20:36 | Emergency (ER) | payer OTHER, MEDICARE ==
[~2024-01-07] VITALS: Ht 157.4 cm; Wt 63.6 kg
[~2024-01-07 20:36] MED LIST changes: +BENZTROPINE ME0.5 MG PEG; +CALCIUM CARBON600 M4 PO; +DONEPEZIL HYDROC5 M1 PEG; -DONEPEZIL HYDROC5 M1 PO; +EPIPEN JR0.15 MG/01 IJ; +FLUMADINE100 MG PEG; -FLUMADINE100 MG PO; +MELATONIN5 M1 PEG; +MIRALAX119 GM PO; +OMNICEF300 MG PO; +PROVERA10 MG PEG; +REMERON15 M2 PEG; +SUPER CALCIUM PO; +Sinemet 25 MG-100 MG PEG; +TYLENOL EXTRA500 M2 PEG; +VISTARIL25 MG PEG; +VITAMIN D310 MCG PO; +VITAMIN D325 MCG PO; +ZITHROMAX250 MG PO
[2024-01-07 20:37] VITALS: BP 125/79
== END 2024-01-07 22:35 ==
LOC: ED 20:36
DX: K94.23 Gastrostomy malfunction (principal); E78.00 Pure hypercholesterolemia, unspecified; E87.0 Hyperosmolality and hypernatremia; F32.A Depression, unspecified; E83.41 Hypermagnesemia; E83.51 Hypocalcemia; D64.9 Anemia, unspecified; I12.9 Hypertensive chronic kidney disease with stage 1 through stage 4 chronic kidney disease, or unspecified chronic kidney disease; N18.32 Chronic kidney disease, stage 3b; F03.90 Unspecified dementia, unspecified severity, without behavioral disturbance, psychotic disturbance, mood disturbance, and anxiety; Z98.890 Other specified postprocedural states; Z91.030 Bee allergy status; Z91.041 Radiographic dye allergy status; Y84.8 Other medical procedures as the cause of abnormal reaction of the patient, or of later complication, without mention of misadventure at the time of the procedure

== ENCOUNTER → 2024-02-24 | Outpatient (CLI) | payer OTHER, MEDICARE ==
[~2024-02-24] MED LIST changes: +BARIUM SULFATE 98% 340 GM BOT PO ONE
== END | disposition home or self-care (01) ==
LOC: RAD/SH 09:29
PROVIDERS: ATTEND Physician Assistant Medical
DX: G20.B2 Parkinson's disease with dyskinesia, with fluctuations (principal)

== ENCOUNTER 2024-03-19 20:35 | Inpatient (IN) | payer OTHER ==
[~2024-03-19] VITALS: Ht 177.8 cm; Wt 63.5 kg
[2024-03-19 20:30] VITALS: BP 104/69
[~2024-03-19 20:35] MED LIST changes: +AMOX-CLAV 875-1 EACH PO; -BARIUM SULFATE 98% 340 GM BOT PO ONE; +DEPAKOTE SPRIN125 MG PO; +DHIVY 25-100 M1 EAC1 PO; +Ipratropium Brom3 ML INH; +NUPLAZID34 MG PO; +PREDNISONE20 M1 PO; +TYLENOL EXTRA500 MG PO
[2024-03-19] MEDS ORDERED: MORPHINE Sulfate 5 MG IV PRN (21:10)
[2024-03-19] MEDS ORDERED: DIAZEPAM 10 MG/2 ML SYR IV PRN (21:10)
[2024-03-19] MEDS ORDERED: ATROPINE SULFATE 1% 2 ML BOTTLE SL PRN (21:10)
[2024-03-19] MEDS ORDERED: MORPHINE Sulfate 2 MG/ML SYR IV PRN (21:25)
[2024-03-19] MEDS ORDERED: MORPHINE Sulfate 50 MG in SODIUM CHLORIDE 0.9% 45 ML IV SCH (21:25)
[2024-03-19] MEDS ORDERED: SODIUM CHLORIDE 0.9% 500 ML IV SCH (22:00)
[2024-03-19] MEDS ORDERED: SODIUM CHLORIDE 0.9% 500 ML IV ONE (22:04)
[2024-03-20] VITALS: BP 110/65
[2024-03-20 08:00] VITALS: BP 135/87
[2024-03-20 16:00] VITALS: BP 104/67
[2024-03-20] MEDS ORDERED: MORPHINE Sulfate 100 MG in SODIUM CHLORIDE 0.9% 90 ML IV SCH ×2 (16:55→17:15)
[2024-03-21 04:00] VITALS: BP 110/53
[2024-03-21 08:00] VITALS: BP 98/50
[2024-03-21 20:00] VITALS: BP 113/54
[2024-03-22] VITALS: BP 93/51
[2024-03-22 08:00] VITALS: BP 11/66
[2024-03-22 12:00] VITALS: BP 102/53
[2024-03-22 15:00] VITALS: BP 116/57
[2024-03-23 06:24] VITALS: BP 113/68
[2024-03-23 08:00] VITALS: BP 137/80
[2024-03-23 12:00] VITALS: BP 130/60
[2024-03-23 16:34] VITALS: BP 135/70
[2024-03-23] MEDS ORDERED: fentaNYL CITRATE 1,000 MCG in SODIUM CHLORIDE 0.9% 230 ML IV SCH (20:30)
[2024-03-24 08:00] VITALS: BP 126/79
[2024-03-24] MEDS ORDERED: fentaNYL CITRATE 1,000 MCG in SODIUM CHLORIDE 0.9% 230 ML IV SCH (10:45)
[2024-03-24 16:00] VITALS: BP 132/62
[2024-03-24 20:12] VITALS: BP 116/61
[2024-03-24 21:28] VITALS: BP 107/60
[2024-03-25 00:34] VITALS: BP 10135/8; BP 135/85
[2024-03-25] MEDS ORDERED: fentaNYL CITRATE 1,000 MCG in SODIUM CHLORIDE 0.9% 230 ML IV SCH (08:40)
[2024-03-25] MEDS ORDERED: fentaNYL 100 MCG PATCH T SCH (10:35)
[2024-03-25] MEDS ORDERED: LORazepam 2 MG TAB SL PRN (10:40)
[2024-03-25] MEDS ORDERED: Morphine Sulfate 10 MG/0.5 ML CONCENTRATE ORAL SYRINGE PO PRN ×2 (10:40→13:31)
[2024-03-25 20:00] VITALS: BP 84/51
== END 2024-03-25 20:07 | DRG 871 ==
LOC: 4E 20:35
PROVIDERS: ADMIT Internal Medicine; ATTEND Internal Medicine
DX: A41.9 Sepsis, unspecified organism (principal); J69.0 Pneumonitis due to inhalation of food and vomit; N39.0 Urinary tract infection, site not specified; G20.A1 Parkinson's disease without dyskinesia, without mention of fluctuations; R62.7 Adult failure to thrive; Z74.01 Bed confinement status; Z68.20 Body mass index [BMI] 20.0-20.9, adult